=== PATIENT | female | born 1995 | race Caucasian/White ===

== ENCOUNTER 2021-09-15 03:31 | Emergency (ER) | payer SELFPAY ==
[~2021-09-15] VITALS: Ht 162.6 cm; Wt 118.2 kg
[2021-09-15 04:00] LABS: BASO # 0.1 K/mm3 (0.0-0.2); BASO % 0.8 % (0.0-2.0); EOS # 0.1 K/mm3 (0.0-0.7); EOS % 0.5 % (0.0-4.0); GRAN # 9.3 K/mm3 (1.4-6.5); GRAN % 68.6 % (42.2-75.2); HEMATOCRIT 37.7 % (37.0-47.0); HEMOGLOBIN 13.1 g/dl (12.5-16.0); LYMPH # 3.2 K/mm3 (1.2-3.4); LYMPH % 23.5 % (20.0-51.0); MEAN CELL VOLUME 85 fl (80.0-100.0); MEAN CORPUSCULAR HEMOGLOBIN 29 pg (27-31); MEAN CORPUSCULAR HGB CONC 35 g/dl (33.0-37.0); MEAN PLATELET VOLUME 9.9 fl (7.4-10.4); MONO # 0.9 K/mm3 (0.1-0.6); MONO % 6.2 % (1.7-9.3); PLATELET COUNT 289 K/mm3 (130-400); RED BLOOD COUNT 4.45 M/mm3 (4.10-5.30); REDCELL DISTRIBUTION WIDTH-CV 12.6 % (11.5-14.5)
[2021-09-15 04:36] LABS: ALBUMIN 4.2 gm/dL (3.5-5.0); BILIRUBIN,TOTAL 0.3 mg/dL (0.2-1.2); C-REACTIVE PROTEIN 0.6 mg/dL (0.00-0.50); CALCIUM 9.1 mg/dL (8.4-10.2); CREATININE, serum 0.75 mg/dL (0.57-1.11); POTASSIUM 3.6 mmol/L (3.5-4.5); TOTAL PROTEIN 7.2 gm/dL (6.2-8.1)
[2021-09-15] MEDS ORDERED: ANTIVERT 25MG25 MG PO (04:56)
[2021-09-15] MEDS ORDERED: PHENERGAN 25 TA25 MG PO (04:56)
[2021-09-15 05:25] VITALS: BP 136/79; PULSE 88; TEMP 97.9
== END 2021-09-15 05:25 | disposition home or self-care (01) ==
LOC: COL.ER 03:31
PROVIDERS: Emergency Medicine
DX: R42 Dizziness and giddiness (principal); D72.829 Elevated white blood cell count, unspecified; R11.2 Nausea with vomiting, unspecified; F17.210 Nicotine dependence, cigarettes, uncomplicated; Z28.311 Partially vaccinated for COVID-19
CPT/HCPCS: J2405; J2550; J7030